=== PATIENT | male | born 2000 | race Hispanic/Latino ===

== ENCOUNTER 2023-06-29 19:59 | Emergency (ER) | payer SELFPAY ==
[2023-06-29] MEDS ORDERED: Acetaminophen 500 MG TAB ONE (23:31)
[2023-06-29] MEDS ORDERED: Lidocaine 1% (PF) 30 ML VIAL ONE (23:40)
== END 2023-06-30 00:20 | disposition home or self-care (01) ==
LOC: CSHERS 19:59
DX: S62.316A Displaced fracture of base of fifth metacarpal bone, right hand, initial encounter for closed fracture (principal); W22.01XA Walked into wall, initial encounter
CPT/HCPCS: 96372; 99283; J2001